=== PATIENT | female | born 1985 | race Caucasian/White ===

== ENCOUNTER 2019-08-18 12:55 | Emergency (ER) | payer BC ==
[~2019-08-18] VITALS: Ht 162.6 cm; Wt 79.5 kg
[~2019-08-18 12:55] MED LIST: AMOXICILLIN 8751 TAB PO; LORTAB 5/500 501 TAB PO; NO HOME MEDICATIONS; PROTONIX 40MG T40 MG PO
[2019-08-18 13:12] VITALS: TEMP 98.3
[2019-08-18] MEDS ORDERED: NORCO 325 MG-51 TAB PO (14:30)
[2019-08-18 15:56] VITALS: BP 125/80; PULSE 85
== END 2019-08-18 15:40 | disposition home or self-care (01) ==
LOC: COL.ER 12:55
DX: S52.001A Unspecified fracture of upper end of right ulna, initial encounter for closed fracture (principal); W01.0XXA Fall on same level from slipping, tripping and stumbling without subsequent striking against object, initial encounter; Y92.009 Unspecified place in unspecified non-institutional (private) residence as the place of occurrence of the external cause